=== PATIENT | female | born 1970 | race Hispanic/Latino ===

== ENCOUNTER 2017-12-09 05:10 | Observation (INO) | payer OTHER ==
[2017-12-05 14:38] LABS: BASOPHILS # (AUTO) 0.1 (0.0-0.1); BASOPHILS % 0.7 % (0.0-1.0); EOSINOPHILS # (AUTO) 0.1 (0.0-0.4); EOSINOPHILS % 1.2 % (0.0-6.0); HEMOGLOBIN 14.5 g/dL (12.0-16.0); LYMPHOCYTES # (AUTO) 2.4 (1.0-3.2); LYMPHOCYTES % 29.5 % (18.0-39.1); MEAN CORPUSCULAR HEMOGLOBIN 30.9 pg (28-32); MEAN CORPUSCULAR HGB CONC 34.5 g/dL (31-35); MEAN CORPUSCULAR VOLUME 89.6 fL (81-99); MONOCYTES # (AUTO) 0.5 (0.2-0.8); MONOCYTES % 6.6 % (4.4-11.3); NEUTROPHILS % 61.8 % (38.7-80.0); PLATELET COUNT 290 x10e3/uL (140-360); RED BLOOD COUNT 4.69 x10e6/uL (3.6-5.1); RED CELL DISTRIBUTION WIDTH 12.1 % (11.7-14.4)
[2017-12-05 14:39] LABS: BILIRUBIN,URINE NEGATIVE (NEGATIVE); CLARITY,URINE CLEAR (CLEAR); COLOR,URINE YELLOW (YELLOW); KETONES,URINE TRACE (NEGATIVE); LEUKOCYTE ESTERASE ,URINE NEGATIVE (NEGATIVE); NITRITE,URINE NEGATIVE (NEGATIVE); PROTEIN,URINE DIPSTICK NEGATIVE (NEGATIVE); URINE UROBILINOGEN 0.2 mg/dL (0.2 - 1)
[2017-12-05 15:05] LABS: HIV 1&2 AB SCREEN NON-REACTIVE (NONREACTIVE)
--- NOTE | 2017-12-05 15:31 | Diagnostic Imaging Report ---
PROCEDURE: Frontal and lateral views of the chest. COMPARISON: Patients [facility], , CHEST 2 VIEWS, 10/15/2013, 10:48. INDICATIONS: PREOPERATIVE CHEST XRAY FOR OVARIAN CYST REMOVAL FINDINGS: Lines/tubes: None. Lungs: The lungs are well inflated and clear. There is no evidence of pneumonia or pulmonary edema. Pleura: There is no pleural effusion or pneumothorax. Heart and mediastinum: The heart and the mediastinum are normal. Small hiatal hernia. Bones: No acute bony abnormality. IMPRESSION: 1. No acute cardiopulmonary disease. Faustina Flores M.D. Dictated by: Faustina Flores M.D. on 12/05/2017 at 15:34 Electronically approved by: Faustina Flores M.D. on 12/05/2017 at 15:34
[~2017-12-09] VITALS: Ht 157.5 cm; Wt 82.6 kg
[~2017-12-09 05:10] MED LIST: DOXYCYCLINE HY100 MG PO; IBUPROFEN400 MG PO; IBUPROFEN600 MG PO; IRON PO; LEVOTHYROXINE50 MCG PO; LISINOPRIL-HCT1 EAC2 PO; STOOL SOFTENER100 M1 PO
[2017-12-09] MEDS ORDERED: CEFOXITIN SOD 1 GM VIAL ONE (06:08)
[2017-12-09] MEDS ORDERED: BUPIVACAINE 0.5%/EPI 30 ML SDV INJ ONE (07:01)
[2017-12-09] MEDS ORDERED: FENTANYL CITRATE/PF 100MCG/2 ML INJ ONE ×2 (10:38→19:19)
[2017-12-09] MEDS ORDERED: DEXTROSE 5%/LACTATED RINGERS 1,000 ML IV ONE (11:30)
[2017-12-09 11:39] VITALS: BP 128/70
[2017-12-09 11:47] VITALS: BP 128/70
--- NOTE | 2017-12-09 11:57 | Operative Report ---
DATE OF PROCEDURE: December 09, 2017 PREOPERATIVE DIAGNOSIS: A 47-year-old female, 3, para 3, status post total abdominal hysterectomy and left salpingo-oophorectomy, suffering from severe lower abdominal and pelvic pain and has a right ovarian cyst, about 5 to 6 cm size. POSTOPERATIVE DIAGNOSES 1. A 47-year-old female, 3, para 3, status post total abdominal hysterectomy and left salpingo-oophorectomy, suffering from severe lower abdominal and pelvic pain and has a right ovarian cyst, about 5 to 6 cm size. 2. Extensive abdominal and pelvic adhesions between the omentum and anterior abdominal wall and pelvic sidewalls. PROCEDURES 1. Examination under anesthesia. 2. Pelviscopy. 3. Pelviscopic abdominal and pelvic adhesiolysis. 4. Pelviscopic removal of right ovarian cyst and right salpingo-oophorectomy. FLORICULTURE TEACHER: Candido Sales MD FINDINGS AT THE TIME OF SURGERY: On EUA, the vaginal vault was healthy. Right adnexal mass, about 5 to 6 cm size. On pelviscopy, there are extensive adhesions between the omentum and anterior abdominal wall and pelvic sidewalls anterior and to the left pelvic sidewall. There was a right ovarian cyst about 6 cm size, looks simple, free with no adhesions. A couple of flimsy adhesions between the pelvic sidewall on the right side, but the majority of them to the front and to the left. The mass was buried under the adhesions. The right ovary is small, next to the cyst. The tube looks normal. No free fluid. I removed the right ovarian cyst and right ovary and tube after adhesiolysis. ESTIMATED BLOOD LOSS: Minimal. URINE: Clear in the Erickson bag. COMPLICATIONS: None. PROCEDURE IN DETAIL: The patient was brought to the operating room and put in the supine position. General anesthesia was given without any problems. After adequate anesthesia, the patient was examined under anesthesia. The findings are as dictated above. Then she was prepped and draped in the routine fashion, and we proceeded with the surgery. She was in the lithotomy position with a Erickson catheter in the bladder draining clear urine. Then put towel clips on either side of the umbilicus and introduced the Veress needle into the abdominal cavity and created a pneumoperitoneum with CO2. After adequate pneumoperitoneum, the Veress needle was removed. We made a small incision at the base of the umbilicus and introduced the disposable trocar and cannula 10-11 size. The scope was in the abdominal cavity. No problems. No bleeding. No injury to any organs. The liver looked normal, but there were extensive adhesions between the omentum and pelvic sidewalls and anterior abdominal wall like a curtain. We made a 2nd puncture in the suprapubic area and introduced the 2nd disposable trocar and cannula. Through the cannula, we introduced the probe and explored the pelvis. Behind the curtain of adhesions, the right ovary most of it was a cyst about 6 cm size, looked simple. It was free. There was a small ovary next to the cyst. The tube looked normal. There was no free fluid and no signs of any malignancy. Therefore, we decided to remove the cyst laparoscopically. We put a 3rd puncture in the right side of the abdomen and introduced a #12 size trocar and cannula. Through the trocar, we introduced the Harmonic to do the adhesiolysis. After the initial attempt, we changed the Harmonic to the suprapubic site, and the irrigation cannula was introduced through the 3rd port. With the help of the Harmonic, we the adhesions from the anterior abdominal wall and pelvic sidewall. The ureter was far away, and the bladder was away. The urine was clear in the Erickson bag. Hemostasis was satisfactory. After most of the adhesions on the right side and in the front, we could see the right ovary and right ovarian cyst. Still, she had some more adhesions on the left, but the vision was more clear now. We proceeded with removal of the right ovarian cyst. Most of the ovary was replaced by the cyst. A very small, tiny ovary was present behind, but it was pretty free, not stuck to the pelvic sidewall. The ureter was far away. Then I introduced a stapler from the 3rd port and applied it to the infundibulopelvic ligament close to the ovary and applied the maxx. Needed 3 staple bites. With that, the ovary and ovarian cyst were . The infundibulopelvic ligament stump hemostasis was satisfactory. We irrigated the pelvis and removed some of the fluid. The cyst looked simple. We decided to remove it through the Endo Catch. The stapler was removed through the 3rd port and into the Endo Catch. We put in the cyst, part of the ovary and tube into the Endo Catch and tried to remove it, but it was too big to come through the incision. We passed the aspiration needle through the port into the bag and aspirated the fluid. Then it was decompressed and removed through the 3rd port. We sent the tissue for pathology. The fluid was clear. We again irrigated the pelvis. Hemostasis was satisfactory. The ureter looked normal. Urine was clear in the Erickson bag. After removing most of the fluid, we evacuated the pneumoperitoneum and removed all the instruments from the abdominal cavity. We closed the incisions with 3-0 Vicryl with subcuticular stitch. The patient tolerated the procedure well. There were no complications. Estimated blood loss was minimal. The urine was clear in the Erickson bag. The patient was moved to the recovery room in stable condition. Job#: [id number]
[2017-12-09] MEDS ORDERED: SEVOFLURANE INHAL SOLN 250 ML PEN BTL ONE (14:24)
[2017-12-09] MEDS ORDERED: LIDOCAINE HCL 2% LOCAL INJ 5 ML SDV VIAL INJ ONE (14:24)
[2017-12-09] MEDS ORDERED: ONDANSETRON HCL INJ 2 MG/ML VIAL ONE (14:24)
[2017-12-09] MEDS ORDERED: DEXAMETHASONE SOD PHOS INJ 4 MG/ML VIAL ONE (14:24)
[2017-12-09] MEDS ORDERED: PROPOFOL IV EMULSION 10 MG/ML 20 ML VIAL ONE (14:24)
[2017-12-09] MEDS ORDERED: ROCURONIUM BROMIDE 10 MG/ML 5ML VIAL ONE (14:24)
[2017-12-09] MEDS ORDERED: ACETAMINOPHEN 1000 MG/100 ML IV ONE (14:24)
[2017-12-09 15:44] VITALS: BP 130/88
[2017-12-09] MEDS ORDERED: HYDROCODONE/APAP 5MG-325MG TAB PO PRN (16:00)
[2017-12-09] MEDS ORDERED: MIDAZOLAM HCL 2 MG/2 ML VIAL ONE (19:19)
== END 2017-12-09 18:29 | disposition home or self-care (01) ==
LOC: OR 05:10 → PACU V 11:00 → IMCU 11:31
PROVIDERS: ADMIT Specialist; ATTEND Specialist
DX: N83.201 Unspecified ovarian cyst, right side (principal); N73.6 Female pelvic peritoneal adhesions (postinfective)
CPT/HCPCS: 36415; 58661; 58662; 71046; 81003; 84702; 85025; 86850; 86900; 87390; 88305; 93005; G0378; G0433; G0435; J0694; J1100; J2001; J2250; J2405; J7120; 88304

== ENCOUNTER 2022-10-25 22:40 | Emergency (ER) | payer OTHER ==
[~2022-10-25] VITALS: Ht 157.5 cm; Wt 79.4 kg
[2022-10-25] MEDS ORDERED: DIPHENHYDRAMINE50 M1 PO (23:44)
[2022-10-25] MEDS ORDERED: IBUPROFEN200 MG PO (23:44)
[2022-10-25] MEDS ORDERED: TOBRADEX ST EYE5 ML OD (23:44)
[2022-10-25] MEDS ORDERED: SODIUM CHLORIDE FLUSH 10 ML SYR IV ONE (23:45)
[2022-10-25] MEDS ORDERED: FLUORESCEIN SOD(OPTH) 1 MG STRP OP ONE (23:45)
[2022-10-25] MEDS ORDERED: ACETAMINOPHEN 325 MG TAB PO ONE (23:45)
[2022-10-25] MEDS ORDERED: TETRACAINE HCL 0.5% OPTH SOLN 4 ML BTL OP ONE (23:45)
[2022-10-25] MEDS ORDERED: ERYTHROMYCIN (OPTH) 3.5 GM OINT OP ONE ×2 (23:45→23:49)
[2022-10-25] MEDS ORDERED: ACETAMINOPHEN 325 MG TAB ONE (23:53)
[2022-10-25] MEDS ORDERED: FLUORESCEIN SOD(OPTH) 1 MG STRP ONE (23:53)
[2022-10-26 00:07] VITALS: BP 162/94
== END 2022-10-26 00:07 | disposition home or self-care (01) ==
LOC: FSED 22:48
DX: H57.12 Ocular pain, left eye (principal); H18.822 Corneal disorder due to contact lens, left eye; Y99.0 Civilian activity done for income or pay; E03.9 Hypothyroidism, unspecified
CPT/HCPCS: 99282; J7030